=== PATIENT | female | born 1985 | race Hispanic/Latino ===

== ENCOUNTER 2017-02-22 20:44 | Emergency (ER) | payer BC, OTHER ==
[2017-02-22 20:51] VITALS: BMI 22.6
[2017-02-22] MEDS ORDERED: Sodium Chloride 0.9% 500 ML IV STA (21:11)
[2017-02-22] MEDS ORDERED: guaiFENesin 200 mg/10 ml Syrup UD PO STA (21:11)
[2017-02-22] MEDS ORDERED: guaiFENesin-Codeine 100-10mg/5ml Syrup (5 ml) UD PO ONE (21:11)
[2017-02-22] MEDS ORDERED: Levalbuterol 1.25 MG/3 ML Inhal Soln UD IH STA (21:12)
[2017-02-22] MEDS ORDERED: Phenylephrine 0.5% Nasal Spray (15 ml) NS STA (21:13)
[2017-02-22 21:16] VITALS: TEMP 97.7
[2017-02-22 21:27] LABS: ADD MANUAL DIFF? NO
[2017-02-22 21:35] LABS: BASO # 0.03 K/mm3 (0.0-2.0); BASO % 0.3 % (0.0-3.0); EOS # 0.1 (0.0-0.7); EOS % 0.7 % (1.5-5.0); GRAN # 6.66 (1.4-6.5); GRAN % 73.4 % (50.0-68.0); HEMATOCRIT 37.8 % (36.0-48.0); LYMPH # 1.6 (1.2-3.4); LYMPH % 17.1 % (22.0-35.0); MEAN CELL VOLUME 85.7 fL (80.0-105.0); MEAN CORPUSCULAR HEMOGLOBIN 29.7 pg (25.0-35.0); MEAN CORPUSCULAR HGB CONC 34.7 g/dl (31.0-37.0); MEAN PLATELET VOLUME 9.8 fl (7.0-11.0); MONO # 0.8 (0.1-0.6); MONO % 8.5 % (1.0-6.0); PLATELET COUNT 290 10^3/uL (120.0-450.0); RED CELL DISTRIBUTION WIDTH 12.5 % (11.5-14.5); WHITE BLOOD COUNT 9.1 10^3/ul (4.5-11.0)
[2017-02-22 21:42] LABS: ALB/GLOB RATIO 1.2 (1.1-1.8); ALKALINE PHOSPHATASE 56 U/L (38-133); ALT/SGPT 22 U/L (7-56); AST/SGOT 22 U/L (15-39); BILIRUBIN,TOTAL 0.5 mg/dL (0.2-1.3); BLOOD UREA NITROGEN 8 mg/dL (7-21); CALCIUM 9.4 mg/dL (8.4-10.5); CARBON DIOXIDE 26 mmol/L (21-33); CHLORIDE 103 mmol/L (98-107); GFR AFRICAN-AMERICAN > 60; GLUCOSE,RANDOM 94 mg/dL (70-110); MAGNESIUM 1.9 mg/dL (1.7-2.2); POTASSIUM 3.7 mmol/L (3.6-5.0); SODIUM 136 mmol/L (132-148); TOTAL PROTEIN 7.5 g/dL (5.8-8.3)
--- NOTE | 2017-02-22 21:47 | ED PDOC ---
Arrival/HPI - General Chief Complaint: Chest Pain Time Seen by Provider: 02/22/17 21:03 Historian: Patient - History of Present Illness Narrative History of Present Illness (Text): 02/22/17 21:05 A 31 year old female, whose past medical history includes Lupus, presents to the emergency department complaining of worsen cough for the past 2 weeks. Patient reports she was seen by her PMD and was told she has Bronchitis and started on a Z-ailin. Patient says she finished her last dose 3 days ago but the symptoms have worsened since. She went to her PMD yesterday and was prescribe a different antibiotic and an antihistamine. Patient shows no improvement in pain so she decided to come into the emergency department for further evaluation. patient has some post tussive chest pain and abdominal pain. Patient notes a sinus congestion, intermittent shortness of breath, diarrhea and nausea today but denies any fever, vomiting, symptoms or other complaints at this time. P PMD: Dr. Justin Time/Duration: > week Symptom Onset: Sudden Symptom Course: Worsening Quality: Other Activities at Onset: Rest Context: Home Past Medical History - Provider Review Nursing Documentation Reviewed: Yes - Tetanus Immunization Tetanus Immunization: Up to Date - Cardiac Hx Cardiac Disorders: No - Pulmonary Hx Respiratory Disorders: Yes Hx Bronchitis: Yes - Neurological Hx Neurological Disorder: No - HEENT Hx HEENT Disorder: No - Renal Hx Renal Disorder: No - Endocrine/Metabolic Hx Endocrine Disorders: Yes Hx Systemic Lupus Erythematosus: Yes - Hematological/Oncological Hx Blood Disorders: No - Integumentary Hx Dermatological Disorder: No - Musculoskeletal/Rheumatological Hx Musculoskeletal Disorders: No - Gastrointestinal Hx Gastrointestinal Disorders: No - Genitourinary/Gynecological Hx Genitourinary Disorders: No - Psychiatric Hx Psychophysiologic Disorder: No Hx Substance Use: No - Surgical History Hx Orthopedic Surgery: Yes Hx Tonsillectomy: Yes Other/Comment: Right carpel tunnel surgery - Suicidal Assessment Feels Threatened In Home Enviroment: No Family/Social History - Physician Review Nursing Documentation Reviewed: Yes Family/Social History: Unknown Family HX Smoking Status: Never Smoked Hx Alcohol Use: Yes Frequency of alcohol use: Socially Hx Substance Use: No Allergies/Home Meds Allergies/Adverse Reactions: Allergies No Known Allergies Allergy (Verified 02/22/17 20:52) Home Medications: Home Meds Medication Instructions Recorded Confirmed Hydroxychloroquine Sulfate 200 mg PO DAILY 09/10/16 09/10/16 [Plaquenil] Naproxen [Naprosyn Tab] 0 mg PO PRN PRN 09/10/16 09/10/16 Review of Systems - Physician Review All systems were reviewed & negative as marked: Yes - Review of Systems Constitutional: absent: Fevers ENT: Sinus Congestion Respiratory: SOB, Cough Cardiovascular: Chest Pain Gastrointestinal: Abdominal Pain, Diarrhea, Nausea. absent: Vomiting Genitourinary Female: absent: Dysuria, Frequency, Hematuria, Urine Output Changes, Vaginal Bleeding, Vaginal Discharge Physical Exam Vital Signs Reviewed: Yes Vital Signs Temp Pulse Resp BP Pulse Ox 02/22/17 21:16 97.7 F 81 18 116/71 98 Temperature: Afebrile Blood Pressure: Normal Pulse: Regular Respiratory Rate: Normal Appearance: Positive for: Well-Appearing, Non-Toxic, Comfortable Pain Distress: None Mental Status: Positive for: Alert and Oriented X 3 - Systems Exam Head: Present: Atraumatic, Normocephalic Pupils: Present: PERRL Extroacular Muscles: Present: EOMI Conjunctiva: Present: Normal Mouth: Present: Moist Mucous Membranes Neck: Present: Normal Range of Motion Respiratory/Chest: Present: Clear to Auscultation, Good Air Exchange. No: Respiratory Distress, Accessory Muscle Use Cardiovascular: Present: Regular Rate and Rhythm, Normal S1, S2. No: Murmurs Abdomen: Present: Normal Bowel Sounds. No: Tenderness, Distention, Peritoneal Signs Back: Present: Normal Inspection Upper Extremity: Present: Normal Inspection. No: Cyanosis, Edema Lower Extremity: Present: Normal Inspection. No: Edema Neurological: Present: GCS=15, CN II-XII Intact, Speech Normal Skin: Present: Warm, Dry, Normal Color. No: Rashes Psychiatric: Present: Alert, Oriented x 3, Normal Insight, Normal Concentration Medical Decision Making ED Course and Treatment: 02/22/17 21:05 Impression: A 31 year female with worsening cough. Differential Diagnosis include but are not limited to: bronchitis vs. pneumonia vs less likely PE Plan: -- Chest X-ray -- Labs -- Phenylephrine, Pepcid, Robitussin, Solu-Medrol, Toradol, Xopenex, Zofran and IV Fluids -- Reassess and disposition Prior Visits: Notes and results from previous visits were reviewed. The patient last presented to the emergency department on 09/10/16 for evaluation of a headache. Progress Notes: EKG: Ordered, reviewed, and independently interpreted the EKG. Rate : 94 BPM Rhythm : NSR Interpretation : No ST-segment elevations or depressions, no T-wave inversions, normal intervals. 02/22/17 22:24 Patient with noted history. EKG is normal with normal labs, including normal d- dimer. CXR is normal. Patient feeling better. She has already finished a course of antibiotics. Will treat post-infectious cough with steroids, and Robitussin AC. - Lab Interpretations Lab Results: 02/22/17 20:20 02/22/17 20:20 Lab Results 02/22/17 20:20: D-Dimer, Quantitative 0.33 02/22/17 20:20: Sodium 136, Potassium 3.7, Chloride 103, Carbon Dioxide 26, Anion Gap 11, BUN 8, Creatinine 0.6, Est GFR ( Amer) > 60, Est GFR (Non- Af Amer) > 60, Random Glucose 94, Calcium 9.4, Magnesium 1.9, Total Bilirubin 0.5, AST 22, ALT 22, Alkaline Phosphatase 56, Lactate Dehydrogenase 332 L, Total Creatine Kinase 65, Troponin I < 0.01, Total Protein 7.5, Albumin 4.1, Globulin 3.4, Albumin/Globulin Ratio 1.2 02/22/17 20:20: WBC 9.1 D, RBC 4.41, Hgb 13.1, Hct 37.8, MCV 85.7, MCH 29.7, MCHC 34.7, RDW 12.5, Plt Count 290, MPV 9.8, Gran % 73.4 H, Lymph % (Auto) 17.1 L, [place] % (Auto) 8.5 H, Eos % (Auto) 0.7 L, Baso % (Auto) 0.3, Gran # 6.66 H, Lymph # 1.6, [place] # 0.8 H, Eos # 0.1, Baso # 0.03 I have reviewed the lab results: Yes - RAD Interpretation Radiology Orders: 02/22/17 21:09 CHEST TWO VIEWS (PA/LAT) [RAD] Stat - Medication Orders Current Medication Orders: Discontinued Medications Famotidine (Pepcid) 20 mg IVP STAT STA Stop: 02/22/17 21:11 Last Admin: 02/22/17 21:45 Dose: 20 mg Guaifenesin (Robitussin) 200 mg PO ONCE STA Stop: 02/22/17 21:12 Last Admin: 02/22/17 21:47 Dose: 200 mg Guaifenesin/Codeine Phosphate (Robitussin W/Codeine) 10 ml PO ONCE ONE Stop: 02/22/17 21:12 Last Admin: 02/22/17 21:46 Dose: 10 ml Sodium Chloride (Sodium Chloride 0.9%) 500 mls @ 999 mls/hr IV .Q31M STA Stop: 02/22/17 21:41 Last Admin: 02/22/17 21:47 Dose: 999 mls/hr Ketorolac Tromethamine (Toradol) 15 mg IVP STAT STA Stop: 02/22/17 21:21 Last Admin: 02/22/17 21:42 Dose: 15 mg Levalbuterol HCl (Xopenex) 1.25 mg IH STAT STA Stop: 02/22/17 21:13 Last Admin: 02/22/17 21:47 Dose: 1.25 mg Methylprednisolone (Solu-Medrol) 125 mg IVP STAT STA Stop: 02/22/17 21:12 Last Admin: 02/22/17 22:11 Dose: 125 mg Ondansetron HCl (Zofran Inj) 4 mg IVP STAT STA Stop: 02/22/17 21:11 Last Admin: 02/22/17 21:45 Dose: 4 mg Phenylephrine HCl (Alec-Synephrine 0.5% Nasal [place]) 0 ml NS STAT STA Stop: 02/22/17 21:14 Last Admin: 02/22/17 21:45 Dose: 2 sprays - Scribe Statement The provider has reviewed the documentation as recorded by the Keith William Provider Scribe Attestation: All medical record entries made by the Keith were at my direction and personally dictated by me. I have reviewed the chart and agree that the record accurately reflects my personal performance of the history, physical exam, medical decision making, and the department course for this patient. I have also personally directed, reviewed, and agree with the discharge instructions and disposition. Disposition/Present on Arrival - Present on Arrival Any Indicators Present on Arrival: No History of DVT/PE: No History of Uncontrolled Diabetes: No Urinary Catheter: No History of Decub. Ulcer: No History Surgical Site Infection Following: None - Disposition Have Diagnosis and Disposition been Completed?: Yes Diagnosis: Bronchitis Disposition: HOME/ ROUTINE Disposition Time: 22:40 Patient Plan: Discharge Condition: GOOD Additional Instructions: Drink plenty of fluids. Take the medications as prescribed. Follow up with your primary care doctor. Return to the emergency department if any new concerning symptoms. Prescriptions: Albuterol HFA [Ventolin HFA 90 mcg/actuation (8 g)] 2 puff IH Q4H #1 inhaler Codeine Phosphate/Guaifenesin [Guaifenesin-Codeine Syrup] 10 ml PO Q6H PRN #180 ml PRN Reason: Cough predniSONE [Prednisone] 2 tab PO DAILY #10 tab Pseudoephedrine [Sudafed Tab] 2 tab PO Q6H PRN #24 tab PRN Reason: Nasal Congestion Referrals: Maryuri Justin MD [Primary Care Provider] - Follow up with primary
[2017-02-22 21:54] LABS: TROPONIN I < 0.01 ng/mL
[2017-02-23 01:11] VITALS: BP 94/60; PULSE 94; RESP 19; O2SAT 97
--- NOTE | 2017-02-23 10:54 | RAD ---
HISTORY: cough COMPARISON: 12/25/2013 TECHNIQUE: Chest PA and lateral FINDINGS: LUNGS: No active pulmonary disease. PLEURA: No significant pleural effusion identified. No pneumothorax apparent. CARDIOVASCULAR: Normal. OSSEOUS STRUCTURES: No significant abnormalities. VISUALIZED UPPER ABDOMEN: Normal. OTHER FINDINGS: None. IMPRESSION: No active disease.
--- NOTE | 2017-02-23 11:07 | CARD ---
APPROVED REPORT EKG Measurement Heart [id number] <Conclusion> Normal sinus rhythm Normal ECG
== END 2017-02-22 23:56 | disposition home or self-care (01) ==
LOC: ED 20:44
DX: J40 Bronchitis, not specified as acute or chronic (principal); M32.9 Systemic lupus erythematosus, unspecified
CPT/HCPCS: 71020; 80053; 82550; 83615; 83735; 84484; 85025; 85378; 93005; 96374; 96375; 99283; J1885; J2405; J2930; J7040

== ENCOUNTER 2018-10-02 14:54 | Observation (INO) | payer BC, OTHER ==
[2018-10-02 15:05] VITALS: BMI 20.5
[2018-10-02] MEDS ORDERED: Morphine 2 mg/ml ISec IVP STA (15:26)
--- NOTE | 2018-10-02 15:29 | ED PDOC ---
Arrival/HPI - General Time Seen by Provider: 10/02/18 15:03 Historian: Patient - History of Present Illness Narrative History of Present Illness (Text): 10/02/18 15:25 33 year old female, whose past medical history includes lupus and depression, presents to the emergency department complaining of burning sensation in her chest and back, since earlier this morning. Patient states the chest pain worsens when she tries to take a deep breath, she describes the pain as a "sharp object" pressing against her chest. She notes associated swelling. Patient denies these symptoms feel different when compared to previous panic attack. She denies fevers, chills, headache, dizziness, shortness of breath, dyspnea on exertion, cough, abdominal pain, nausea, vomiting, diarrhea, or any other complaint. Time/Duration: 4-6 hours Symptom Onset: Gradual Activities at Onset: Light Context: Home Past Medical History - Provider Review Nursing Documentation Reviewed: Yes - Infectious Disease Hx of Infectious Diseases: None - Tetanus Immunization Tetanus Immunization: Up to Date - Reproductive Menopause: Yes - Cardiac Hx Cardiac Disorders: No - Pulmonary Hx Respiratory Disorders: Yes Hx Bronchitis: Yes - Neurological Hx Neurological Disorder: No - HEENT Hx HEENT Disorder: No - Renal Hx Renal Disorder: No - Endocrine/Metabolic Hx Endocrine Disorders: Yes Hx Systemic Lupus Erythematosus: Yes - Hematological/Oncological Hx Blood Disorders: No - Integumentary Hx Dermatological Disorder: No - Musculoskeletal/Rheumatological Hx Musculoskeletal Disorders: No - Gastrointestinal Hx Gastrointestinal Disorders: No - Genitourinary/Gynecological Hx Genitourinary Disorders: No - Psychiatric Hx Psychophysiologic Disorder: No Hx Substance Use: No - Surgical History Hx Orthopedic Surgery: Yes Hx Tonsillectomy: Yes Other/Comment: Right carpel tunnel surgery - Anesthesia Hx Anesthesia Reactions: No Hx Malignant Hyperthermia: No - Suicidal Assessment Feels Threatened In Home Enviroment: No Family/Social History - Physician Review Nursing Documentation Reviewed: Yes Family/Social History: No Known Family HX Smoking Status: Never Smoked Hx Alcohol Use: Yes Hx Substance Use: No Allergies/Home Meds Allergies/Adverse Reactions: Allergies No Known Allergies Allergy (Verified 02/22/17 20:52) Home Medications: Home Meds Medication Instructions Recorded Confirmed Hydroxychloroquine Sulfate 200 mg PO DAILY 09/10/16 09/10/16 [Plaquenil] Naproxen [Naprosyn Tab] 0 mg PO PRN PRN 09/10/16 09/10/16 Review of Systems - Physician Review All systems were reviewed & negative as marked: Yes - Review of Systems Constitutional: absent: Fevers Respiratory: absent: SOB, Cough Cardiovascular: Chest Pain Gastrointestinal: absent: Abdominal Pain, Diarrhea, Nausea, Vomiting Musculoskeletal: Back Pain. absent: Neck Pain Neurological: absent: Headache, Dizziness Physical Exam - Physical Exam Narrative Physical Exam (Text): 10/02/18 15:30 Gen: VS reviewed, alert, well developed, well nourished, nontoxic, mild distress. ENT: normal pharynx. Eye: EOMI, PERRL. Neck: no JVD, supple, no adenopathy. CV: tacchycardic with regular rhythm, no rubs, no murmur, no gallops, S1, S2, pulses equal and strong. Pulm: no distress, clear to auscultation, no wheeze, no rhonchi, breath sounds equal, no rales. Abd: soft, nontender, no guarding, no rebound, no rigidity, normal bowel sounds. Ext: no edema. Skin: good color, no rash, no cyanosis. Psych: responds appropriately to questions, normal affect. appears anxious. Neuro: oriented x 3, CN2-12 intact grossly, motor intact, sensation intact. mild tremor in hands. Vital Signs Reviewed: Yes Vital Signs Temp Pulse Resp BP Pulse Ox 10/02/18 14:54 98.1 F 108 H 18 121/80 100 Temperature: Afebrile Blood Pressure: Normal Pulse: Tachycardic Respiratory Rate: Normal Appearance: Positive for: Well-Appearing, Non-Toxic Pain Distress: None Mental Status: Positive for: Alert and Oriented X 3 Medical Decision Making ED Course and Treatment: 10/02/18 15:41 Impression: 33 year old female who presents to the emergency department complaining of burning sensation in chest and back. Plan: - Angiography disection protocol CT scan -- EKG -- Labs -- Chest X-ray -- Morphine -- POC urine test -- Reassess and disposition Prior Visits: Notes and results from previous visits were reviewed. Progress Notes: 10/02/18 17:[address] soria to the hospitalist service. patient to be admitted for chest, abnormal pulm lymphadenopahy with a hx of lupus. there is no discrete pulm infiltrate and i will defer antibiotics. - Lab Interpretations I have reviewed the lab results: Yes - RAD Interpretation Narrative RAD Interpretations (Text): 10/02/2018 16:[address] IMPRESSION: No evidence of aortic dissection. No gross central pulmonary embolism. Nonspecific prominent mediastinal and bilateral axillary lymph nodes. Largest node measures 2.7 x 1.6 cm in left axilla. Dictator: Gio Nunez MD - EKG Interpretation EKG Interpretation (Text): 10/02/18 16:08 1501: sinus tach at 106 bpm, nml qrs, nml axis, no acute sstw abn Interpreted by ED Physician: Yes Type: 12 lead EKG - Scribe Statement The provider has reviewed the documentation as recorded by the Marniibannalise Ramirez Provider Scribe Attestation: All medical record entries made by the Scribe were at my direction and personally dictated by me. I have reviewed the chart and agree that the record accurately reflects my personal performance of the history, physical exam, medical decision making, and the department course for this patient. I have also personally directed, reviewed, and agree with the discharge instructions and disposition. Disposition/Present on Arrival - Present on Arrival Any Indicators Present on Arrival: No History of DVT/PE: No History of Uncontrolled Diabetes: No Urinary Catheter: No History of Decub. Ulcer: No History Surgical Site Infection Following: None - Disposition Have Diagnosis and Disposition been Completed?: Yes Diagnosis: Chest pain, Lymphadenopathy Disposition Time: 17:59 Patient Plan: Observation Condition: STABLE Discharge Instructions (ExitCare): Chest Pain (ED)
[2018-10-02 15:47] LABS: BASO # 0.02 K/mm3 (0.0-2.0); BASO % 0.4 % (0.0-3.0); EOS % 0.2 % (1.5-5.0); GRAN # 3.44 (1.4-6.5); GRAN % 66.9 % (50.0-68.0); HEMOGLOBIN 12.8 g/dL (12.0-16.0); LYMPH # 1.3 (1.2-3.4); LYMPH % 25.9 % (22.0-35.0); MEAN CELL VOLUME 87.1 fl (80.0-105.0); MEAN CORPUSCULAR HEMOGLOBIN 29.6 pg (25.0-35.0); MEAN PLATELET VOLUME 9.6 fl (7.0-11.0); MONO # 0.3 (0.1-0.6); MONO % 6.6 % (1.0-6.0); RBC 4.33 10^6/uL (3.5-6.1); RED CELL DISTRIBUTION WIDTH 12.3 % (11.5-14.5); WHITE BLOOD COUNT 5.1 10^3/uL (4.5-11.0)
[2018-10-02 15:58] LABS: D DIMER < 200 ng/mlDDU (0-243); INR 0.93; PARTIAL THROMBOPLASTIN TIME 23.1 Seconds (25.1-36.5); PROTHROMBIN TIME 10.6 SECONDS (9.4-12.5)
[2018-10-02 16:00] LABS: ALB/GLOB RATIO 1.2 (1.1-1.8); ALBUMIN 4.2 g/dL (3.0-4.8); ALT/SGPT 36 U/L (7-56); AST/SGOT 56 U/L (14-36); BLOOD UREA NITROGEN 11 mg/dL (7-21); CALCIUM 9.5 mg/dL (8.4-10.5); GFR NON-AFRICAN AMERICAN > 60; LIPASE 98 U/L (23-300)
[2018-10-02 16:12] LABS: TROPONIN I < 0.01 ng/mL
[2018-10-02 16:16] LABS: CK-MB 0.8 ng/mL (0.0-3.6)
[2018-10-02 16:21] LABS: BARBITURATES, UR NEGATIVE (NEGATIVE); BENZODIAZEPINES, UR NEGATIVE (NEGATIVE); OPIATES, UR NEGATIVE (NEGATIVE); PHENCYCLIDINE, UR NEGATIVE (NEGATIVE)
--- NOTE | 2018-10-02 16:57 | CT ---
PROCEDURE: CT Angiography Chest, Abdomen and Pelvis with and without intravenous contrast HISTORY: acute chest pain COMPARISON: None. TECHNIQUE: Contiguous axial images of the chest, abdomen and pelvis were obtained in the phase of aortic enhancement. A noncontrast enhanced CT of the chest was also obtained to evaluate for possible intramural thrombus. Coronal and sagittal reformats were generated. IV dose administered: 140 mL Omnipaque 350 Radiation dose: Total exam DLP = 913.19 mGy-cm. This CT exam was performed using one or more of the following dose reduction techniques: Automated exposure control, adjustment of the mA and/or kV according to patient size, and/or use of iterative reconstruction technique. FINDINGS: CT ANGIOGRAPHY OF THE CHEST WITH & WITHOUT CONTRAST: AORTA (CHEST AND ABDOMEN): The thoracic and abdominal aorta are unremarkable, without aneurysm, dissection or rupture. No intramural thrombus identified in the thoracic aorta on the non-contrast ct of the chest. The celiac axis, superior mesenteric artery, inferior mesenteric artery and the renal arteries are widely patent. The pelvic arteries are unremarkable. LUNGS: 4 mm left lower lobe nodule (series 3, image 64). No mass or consolidation. MEDIASTINUM: Unremarkable. Normal caliber aorta and pulmonary arterial trunk. No aortic dissection. Normal size heart. LYMPH NODES: Prominent mediastinal and bilateral axillary lymph nodes, the largest node in the left axilla measures 2.7 x 1.6 cm. PLEURA: Unremarkable. No pneumothorax. No pleural fluid. BONES: Unremarkable. OTHER FINDINGS: None. CT ANGIOGRAPHY OF THE ABDOMEN AND PELVIS WITH CONTRAST: LIVER: Unremarkable. No gross lesion or ductal dilatation. GALLBLADDER AND BILE DUCTS: Unremarkable. PANCREAS: Unremarkable. No gross lesion or ductal dilatation. SPLEEN: Unremarkable. ADRENALS: Unremarkable. No mass. KIDNEYS AND URETERS: Unremarkable. No hydronephrosis. No solid mass. VASCULATURE: Unremarkable. No aortic aneurysm. No aortic atherosclerotic calcification or mural plaque present. STOMACH AND BOWEL: Unremarkable. No obstruction. No gross mural thickening. APPENDIX: Normal appendix. PERITONEUM: Unremarkable. No free fluid. No free air. LYMPH NODES: Unremarkable. No enlarged lymph nodes. BLADDER: Unremarkable. REPRODUCTIVE: Intrauterine device in place. BONES: No acute fracture. OTHER FINDINGS: None. IMPRESSION: No evidence of aortic dissection. No gross central pulmonary embolism. Nonspecific prominent mediastinal and bilateral axillary lymph nodes. Largest node measures 2.7 x 1.6 cm in left axilla. Additional findings as above.
--- NOTE | 2018-10-02 19:04 | CP.PCM.HP ---
<Jesus Patel - Last Filed: 10/02/18 20:26> History of Present Illness - History of Present Illness History of Present Illness: Medicine History and Physical for Hospitalist Service, Dr. Dom Patel, DO PGY-1 This is a 33 y o female with PMhx lupus (currently on plaquenil therapy), depression, panic attacks, who presents to the ED c/o chest pain and worsening shortness of breath since this am. States she awoke this am from sleep, felt palpitations, thought she was havign a panic attack, but that her symptoms did not go away on own and have been constant and unrelenting since onset. States she took one 800 mg tablet of ibuprofen for pain which did not help. Pt states she was previously treated for Pericarditis in 2017 and admitted at [facility]. Also admits to binge drinking for the past 1.5 mos, admits to drinking about 4-5 glasses red wine/day mixed in between with [employer] Vodka. 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 Admits to associated diaphoresis and tremors. Admits to headache and nausea. Denies vision changes, fever, chills, v/d/c, abd pain, urinary complaints or other symptoms. PMhx: lupus (currently on plaquenil therapy), depression, panic attacks PSurgHx: Release of ulnar nerve of R arm for Carpal tunnel syndrome Allergies: NKDA Home meds: Plaquenil 200 mg bid Fam hx: significant for HTN, DM and depression Soc hx: denies smoking or illicit drug use; admits to binge drinking EtOH as described in HPI PMD: none Primary cesspool cleaner: Dr. Matson ([facility]) Present on Admission - Present on Admission Any Indicators Present on Admission: No History of DVT/PE: No History of Uncontrolled Diabetes: No Urinary Catheter: No Decubitus Ulcer Present: No Review of Systems - Constitutional Constitutional: Excessive Sweating. absent: Chills, Fever - Cardiovascular Cardiovascular: Chest Pain, Dyspnea. absent: Dyspnea on Exertion - Respiratory Respiratory: Dyspnea. absent: Cough, Pain on Inspiration - Gastrointestinal Gastrointestinal: Nausea. absent: Abdominal Pain, Constipation, Diarrhea, Vomiting Past Patient History - Infectious Disease Hx of Infectious Diseases: None - Tetanus Immunizations Tetanus Immunization: Up to Date - Past Social History Smoking Status: Never Smoked - CARDIAC Hx Cardiac Disorders: No - PULMONARY Hx Respiratory Disorders: Yes Hx Bronchitis: Yes - NEUROLOGICAL Hx Neurological Disorder: No - HEENT Hx HEENT Problems: No - RENAL Hx Chronic Kidney Disease: No - ENDOCRINE/METABOLIC Hx Endocrine Disorders: Yes Hx Systemic Lupus Erythematosus: Yes - HEMATOLOGICAL/ONCOLOGICAL Hx Blood Disorders: No - INTEGUMENTARY Hx Dermatological Problems: No - MUSCULOSKELETAL/RHEUMATOLOGICAL Hx Musculoskeletal Disorders: No - GASTROINTESTINAL Hx Gastrointestinal Disorders: No - GENITOURINARY/GYNECOLOGICAL Hx Genitourinary Disorders: No - PSYCHIATRIC Hx Psychophysiologic Disorder: No Hx Substance Use: No - SURGICAL HISTORY Hx Orthopedic Surgery: Yes Hx Tonsillectomy: Yes Other/Comment: Right carpel tunnel surgery - ANESTHESIA Hx Anesthesia Reactions: No Hx Malignant Hyperthermia: No Meds Allergies/Adverse Reactions: Allergies Allergy/AdvReac Type Severity Reaction Status Date / Time No Known Allergies Allergy Verified 02/22/17 20:52 Physical Exam - Constitutional Appears: Non-toxic, No Acute Distress Additional comments: Anxious on exam - Head Exam Head Exam: ATRAUMATIC, NORMOCEPHALIC - Eye Exam Eye Exam: EOMI, Normal appearance, PERRL - ENT Exam ENT Exam: Mucous Membranes Moist - Respiratory Exam Respiratory Exam: Clear to Auscultation Bilateral, NORMAL BREATHING PATTERN. absent: Rales, Rhonchi, Wheezes - Cardiovascular Exam Cardiovascular Exam: Tachycardia, +S1, +S2. absent: Gallop, Rubs, Systolic Murmur - GI/Abdominal Exam GI & Abdominal Exam: Normal Bowel Sounds, Soft. absent: Distended, Guarding, Organomegaly, Tenderness - Extremities Exam Extremities exam: Positive for: full ROM, normal capillary refill, normal inspection, pedal pulses present - Neurological Exam Neurological exam: Alert, CN II-XII Intact, Oriented x3, Reflexes Normal - Skin Skin Exam: Dry, Intact, Normal Color, Warm Results - Vital Signs Recent Vital Signs: Last Vital Signs Temp 98.1 F 10/02/18 14:54 Pulse 108 H 10/02/18 18:28 Resp 19 10/02/18 18:28 BP 140/88 10/02/18 18:28 Pulse Ox 97 10/02/18 18:28 - Labs Result Diagrams: 10/02/18 15:42 10/02/18 15:42 Labs: Laboratory Results - last 24 hr 10/02/18 10/02/18 10/02/18 15:42 15:42 15:42 WBC 5.1 RBC 4.33 Hgb 12.8 Hct 37.7 MCV 87.1 MCH 29.6 MCHC 34.0 RDW 12.3 Plt Count 279 MPV 9.6 Gran % 66.9 Lymph % (Auto) 25.9 Nuckolls % (Auto) 6.6 H Eos % (Auto) 0.2 L Baso % (Auto) 0.4 Gran # 3.44 Lymph # (Auto) 1.3 Nuckolls # (Auto) 0.3 Eos # (Auto) 0.0 Baso # (Auto) 0.02 ESR 4 PT 10.6 INR 0.93 APTT 23.1 L D-Dimer, Quantitative < 200 Sodium 136 Potassium 3.6 Chloride 104 Carbon Dioxide 24 Anion Gap 11 BUN 11 Creatinine 0.5 L Est GFR ( Amer) > 60 Est GFR (Non-Af Amer) > 60 Random Glucose 155 H Calcium 9.5 Magnesium 1.5 L Total Bilirubin 0.7 AST 56 H ALT 36 Alkaline Phosphatase 65 Total Creatine Kinase 399 H CK-MB (CK-2) 0.8 CK-MB (CK-2) % Cancelled Troponin I < 0.01 Total Protein 7.5 Albumin 4.2 Globulin 3.3 Albumin/Globulin Ratio 1.2 Lipase 98 TSH 3rd Generation Urine Opiates Screen Urine Methadone Screen Ur Barbiturates Screen Ur Phencyclidine Scrn Ur Amphetamines Screen U Benzodiazepines Scrn U Oth Cocaine Metabols U Cannabinoids Screen 10/02/18 10/02/18 15:42 15:42 WBC RBC Hgb Hct MCV MCH MCHC RDW Plt Count MPV Gran % Lymph % (Auto) Nuckolls % (Auto) Eos % (Auto) Baso % (Auto) Gran # Lymph # (Auto) Nuckolls # (Auto) Eos # (Auto) Baso # (Auto) ESR PT INR APTT D-Dimer, Quantitative Sodium Potassium Chloride Carbon Dioxide Anion Gap BUN Creatinine Est GFR ( Amer) Est GFR (Non-Af Amer) Random Glucose Calcium Magnesium Total Bilirubin AST ALT Alkaline Phosphatase Total Creatine Kinase CK-MB (CK-2) CK-MB (CK-2) % Troponin I Total Protein Albumin Globulin Albumin/Globulin Ratio Lipase TSH 3rd Generation 1.28 Urine Opiates Screen Negative Urine Methadone Screen Negative Ur Barbiturates Screen Negative Ur Phencyclidine Scrn Negative Ur Amphetamines Screen Negative U Benzodiazepines Scrn Negative U Oth Cocaine Metabols Negative U Cannabinoids Screen Negative Assessment & Plan - Assessment and Plan (Free Text) Assessment: This is a 33 y o female with PMhx lupus (currently on plaquenil therapy), depression, panic attacks, who presents to the ED c/o chest pain and worsening shortness of breath since this am. Admitted for chest pain r/o ACS, EtOH withdrawal. CTA demonstrated b/l axillary and mediastinal lymph nodes b/l. Plan: Chest pain r/o ACS Admit to tele Cardio consulted (Dr. Wu), recs appreciated Trop neg x1, repeat trops x 2 pending EKG sinus tachycardia in ED, no acute St-T wave changes appreciated CTA neg for PE Tylenol prn for pain TSH wnl, free T4 and T3 pending A1c pending B/l mediastinal and axillary lymphadenopathy Found on CTA as noted above Will consult Pulm in am Pt denies B-symptoms, inc night sweats and unintentional weight loss Et0H withdrawal Last known drink yesterday as per pt Binge drinking hx as noted in HPI CIWA protocol Fall and seizure precautions Ativan 1 mg q 6 h prn for anxiety UDS negative EtOH level pending HHD MVT, folate, thiamine Mild transaminitis noted on admission labs, cont to trend Lipase neg Hx lupus C/w home med Plaquenil 200 mg PO bid DVT/GI ppx: SCDs/Protonix Pt seen, examined with, and plan discussed with Dr. Fernandes, attending physician. Jesus Patel DO PGY-1, Hand Molder Pager #[phone] <Shonda Fernandes - Last Filed: 10/03/18 00:56> Results - Vital Signs Recent Vital Signs: Last Vital Signs Temp 98.1 F 10/02/18 14:54 Pulse 102 H 10/02/18 20:41 Resp 18 10/02/18 20:41 BP 128/79 10/02/18 20:41 Pulse Ox 100 10/02/18 20:41 - Labs Result Diagrams: 10/02/18 15:42 10/02/18 15:42 Labs: Laboratory Results - last 24 hr 10/02/18 10/02/18 10/02/18 15:42 15:42 15:42 WBC 5.1 RBC 4.33 Hgb 12.8 Hct 37.7 MCV 87.1 MCH 29.6 MCHC 34.0 RDW 12.3 Plt Count 279 MPV 9.6 Gran % 66.9 Lymph % (Auto) 25.9 Nuckolls % (Auto) 6.6 H Eos % (Auto) 0.2 L Baso % (Auto) 0.4 Gran # 3.44 Lymph # (Auto) 1.3 Nuckolls # (Auto) 0.3 Eos # (Auto) 0.0 Baso # (Auto) 0.02 ESR 4 PT 10.6 INR 0.93 APTT 23.1 L D-Dimer, Quantitative < 200 Sodium 136 Potassium 3.6 Chloride 104 Carbon Dioxide 24 Anion Gap 11 BUN 11 Creatinine 0.5 L Est GFR ( Amer) > 60 Est GFR (Non-Af Amer) > 60 Random Glucose 155 H Calcium 9.5 Magnesium 1.5 L Total Bilirubin 0.7 AST 56 H ALT 36 Alkaline Phosphatase 65 Total Creatine Kinase 399 H CK-MB (CK-2) 0.8 CK-MB (CK-2) % Cancelled Troponin I < 0.01 Total Protein 7.5 Albumin 4.2 Globulin 3.3 Albumin/Globulin Ratio 1.2 Lipase 98 TSH 3rd Generation Urine Opiates Screen Urine Methadone Screen Ur Barbiturates Screen Ur Phencyclidine Scrn Ur Amphetamines Screen U Benzodiazepines Scrn U Oth Cocaine Metabols U Cannabinoids Screen Alcohol, Quantitative 10/02/18 10/02/18 10/02/18 15:42 15:42 20:20 WBC RBC Hgb Hct MCV MCH MCHC RDW Plt Count MPV Gran % Lymph % (Auto) Nuckolls % (Auto) Eos % (Auto) Baso % (Auto) Gran # Lymph # (Auto) Nuckolls # (Auto) Eos # (Auto) Baso # (Auto) ESR PT INR APTT D-Dimer, Quantitative Sodium Potassium Chloride Carbon Dioxide Anion Gap BUN Creatinine Est GFR ( Amer) Est GFR (Non-Af Amer) Random Glucose Calcium Magnesium Total Bilirubin AST ALT Alkaline Phosphatase Total Creatine Kinase CK-MB (CK-2) CK-MB (CK-2) % Troponin I Total Protein Albumin Globulin Albumin/Globulin Ratio Lipase TSH 3rd Generation 1.28 Urine Opiates Screen Negative Urine Methadone Screen Negative Ur Barbiturates Screen Negative Ur Phencyclidine Scrn Negative Ur Amphetamines Screen Negative U Benzodiazepines Scrn Negative U Oth Cocaine Metabols Negative U Cannabinoids Screen Negative Alcohol, Quantitative < 10 10/02/18 20:20 WBC RBC Hgb Hct MCV MCH MCHC RDW Plt Count MPV Gran % Lymph % (Auto) Nuckolls % (Auto) Eos % (Auto) Baso % (Auto) Gran # Lymph # (Auto) Nuckolls # (Auto) Eos # (Auto) Baso # (Auto) ESR PT INR APTT D-Dimer, Quantitative Sodium Potassium Chloride Carbon Dioxide Anion Gap BUN Creatinine Est GFR ( Amer) Est GFR (Non-Af Amer) Random Glucose Calcium Magnesium Total Bilirubin AST ALT Alkaline Phosphatase Total Creatine Kinase CK-MB (CK-2) CK-MB (CK-2) % Troponin I < 0.01 Total Protein Albumin Globulin Albumin/Globulin Ratio Lipase TSH 3rd Generation Urine Opiates Screen Urine Methadone Screen Ur Barbiturates Screen Ur Phencyclidine Scrn Ur Amphetamines Screen U Benzodiazepines Scrn U Oth Cocaine Metabols U Cannabinoids Screen Alcohol, Quantitative Attending/Attestation - Attestation I have personally seen and examined this patient.: Yes I have fully participated in the care of the patient.: Yes I have reviewed all pertinent clinical information: Yes Notes (Text): 10/03/18 00:50 Note :O/E pt was noted to have fine tremors of her hands. Pt seen with the resident by the bedside. Case discussed in detail. Agree with rest of documentation,assessment and plan of treatment.
[2018-10-02] MEDS ORDERED: Magnesium Sulfate 2 gm/50 ml 2 GM/50 ML BAG IVPB ONE (23:15)
[2018-10-03 03:25] LABS: ALB/GLOB RATIO 1.2 (1.1-1.8); ALBUMIN 3.7 g/dL (3.0-4.8); ALT/SGPT 37 U/L (7-56); AST/SGOT 47 U/L (14-36); BLOOD UREA NITROGEN 10 mg/dL (7-21); CALCIUM 8.7 mg/dL (8.4-10.5); GFR NON-AFRICAN AMERICAN > 60
[2018-10-03 03:35] LABS: TROPONIN I < 0.01 ng/mL
[2018-10-03 03:40] LABS: FREE T4 1.21 ng/dL (0.78-2.19)
[2018-10-03 03:54] LABS: T3 1.35 ng/mL (0.97-1.69)
[2018-10-03 04:32] LABS: BASO # 0.02 K/mm3 (0.0-2.0); BASO % 0.5 % (0.0-3.0); EOS # 0.1 (0.0-0.7); GRAN # 1.73 (1.4-6.5); GRAN % 43.2 % (50.0-68.0); HEMOGLOBIN 12.1 g/dL (12.0-16.0); LYMPH # 1.6 (1.2-3.4); MEAN CELL VOLUME 89.1 fl (80.0-105.0); MEAN CORPUSCULAR HEMOGLOBIN 29.4 pg (25.0-35.0); MONO # 0.5 (0.1-0.6); MONO % 13.3 % (1.0-6.0); RBC 4.12 10^6/uL (3.5-6.1); RED CELL DISTRIBUTION WIDTH 12.5 % (11.5-14.5)
[2018-10-03 06:58] VITALS: RESP 20
--- NOTE | 2018-10-03 09:06 | RAD ---
Date of service: 10/02/2018 HISTORY: chest pain COMPARISON: 02/22/2017 FINDINGS: LUNGS: No active pulmonary disease. PLEURA: No significant pleural effusion identified, no pneumothorax apparent. CARDIOVASCULAR: No aortic atherosclerotic calcification present. Normal cardiac size. No pulmonary vascular congestion. OSSEOUS STRUCTURES: No significant abnormalities. VISUALIZED UPPER ABDOMEN: Normal. OTHER FINDINGS: None. IMPRESSION: No active disease.
--- NOTE | 2018-10-03 10:08 | CARD ---
APPROVED REPORT Date of service: 10/02/2018 EKG Measurement Heart [id number] <Conclusion> Sinus tachycardia Otherwise normal ECG
--- NOTE | 2018-10-03 13:00 | CP.PCM.PN ---
Objective - Vital Signs/Intake and Output Vital Signs (last 24 hours): Temp Pulse Resp BP Pulse Ox 98.3 F 80 20 110/81 99 10/03/18 06:00 10/03/18 06:00 10/03/18 06:00 10/03/18 06:00 10/03/18 06:00 Intake and Output: 10/03/18 10/03/18 06:59 18:59 Intake Total 180 Output Total 0 Balance 180 - Medications Medications: Current Medications Acetaminophen (Tylenol 325mg Tab) 650 mg PO Q6H PRN PRN Reason: Pain, moderate (4-7) Last Admin: 10/02/18 21:46 Dose: 650 mg Chlordiazepoxide (Librium) 25 mg PO Q4H PRN; Protocol PRN Reason: Symptoms of alcohol withdrawl Chlordiazepoxide (Librium) 25 mg PO Q8 KATHYA; Protocol Hydroxychloroquine Sulfate (Plaquenil) 200 mg PO BID [facility] Last Admin: 10/03/18 09:41 Dose: 200 mg Pantoprazole Sodium (Protonix Inj) 40 mg IVP DAILY KATHYA Last Admin: 10/03/18 09:41 Dose: 40 mg - Labs Labs: 10/03/18 03:02 10/03/18 03:02 PT 10.6 SECONDS (9.4-12.5) 10/02/18 15:42 INR 0.93 10/02/18 15:42 APTT 23.1 Seconds (25.1-36.5) L 10/02/18 15:42
--- NOTE | 2018-10-03 13:33 | CP.PCM.PN ---
<Jesus Patel - Last Filed: 10/03/18 15:14> Subjective - Date & Time of Evaluation Date of Evaluation: 10/03/18 Time of Evaluation: 09:30 - Subjective Subjective: Medicine Progress Note for Hospitalist Service, Dr. Alejandrina Patel, DO PGY-1 Pt seen and examined at bedside this am. States she is still having chest tightness, states that medication she received overnight helped with symptoms. Anxious on exam. No acute events reported overnight by staff. 12-point ROS obtained, otherwise negative as per pt. Objective - Vital Signs/Intake and Output Vital Signs (last 24 hours): Temp Pulse Resp BP Pulse Ox 98 F 84 20 116/77 99 10/03/18 12:00 10/03/18 12:00 10/03/18 12:00 10/03/18 12:00 10/03/18 06:00 Intake and Output: 10/03/18 10/03/18 06:59 18:59 Intake Total 180 Output Total 0 Balance 180 - Medications Medications: Current Medications Acetaminophen (Tylenol 325mg Tab) 650 mg PO Q6H PRN PRN Reason: Pain, moderate (4-7) Last Admin: 10/02/18 21:46 Dose: 650 mg Chlordiazepoxide (Librium) 25 mg PO Q4H PRN; Protocol PRN Reason: Symptoms of alcohol withdrawl Chlordiazepoxide (Librium) 25 mg PO Q8 [facility]; Protocol Hydroxychloroquine Sulfate (Plaquenil) 200 mg PO BID [facility] Last Admin: 10/03/18 09:41 Dose: 200 mg Pantoprazole Sodium (Protonix Inj) 40 mg IVP DAILY [facility] Last Admin: 10/03/18 09:41 Dose: 40 mg - Labs Labs: 10/03/18 03:02 10/03/18 03:02 PT 10.6 SECONDS (9.4-12.5) 10/02/18 15:42 INR 0.93 10/02/18 15:42 APTT 23.1 Seconds (25.1-36.5) L 10/02/18 15:42 - Constitutional Appears: Non-toxic, No Acute Distress - Head Exam Head Exam: ATRAUMATIC, NORMOCEPHALIC - Eye Exam Eye Exam: EOMI, Normal appearance, PERRL - ENT Exam ENT Exam: Mucous Membranes Moist - Respiratory Exam Respiratory Exam: Clear to Ausculation Bilateral, NORMAL BREATHING PATTERN. absent: Rales, Rhonchi, Wheezes - Cardiovascular Exam Cardiovascular Exam: REGULAR RHYTHM, +S1, +S2. absent: Gallop, Rubs, Murmur - GI/Abdominal Exam GI & Abdominal Exam: Soft, Normal Bowel Sounds. absent: Distended, Tenderness, Organomegaly - Extremities Exam Extremities Exam: Full ROM, Normal Capillary Refill, Normal Inspection. absent: Pedal Edema, Tenderness - Neurological Exam Neurological Exam: Alert, Awake, CN II-XII Intact, Oriented x3 - Psychiatric Exam Psychiatric exam: Anxious - Skin Skin Exam: Dry, Intact, Normal Color, Warm Assessment and Plan - Assessment and Plan (Free Text) Assessment: 33 y o female with PMhx lupus (currently on plaquenil therapy), depression, panic attacks, who presents to the ED c/o chest pain and worsening shortness of breath since this am. Admitted for chest pain r/o ACS, EtOH withdrawal. CTA demonstrated b/l axillary and mediastinal lymph nodes b/l. Plan: Chest pain r/o ACS Cardio consulted (Dr. Wu), recs appreciated Trop neg x3, pt c/o chest pain this am but reproducible on exam, likely 2/2 to costochondritis EKG sinus tachycardia in ED, no acute St-T wave changes appreciated CTA neg for PE Tylenol prn for pain TSH wnl, T4 and T3 wnl A1c pending B/l mediastinal and axillary lymphadenopathy Found on CTA as noted above Pt can follow up outpatient with Pulm for further work-up Pt denies B-symptoms, inc night sweats and unintentional weight loss Et0H withdrawal Last known drink 2 days ago as per pt Binge drinking hx as noted in HPI CIWA protocol Fall and seizure precautions Librium 25 mg PO q12h willie, Ativan 1 mg q6h prn UDS negative EtOH level <10 HHD MVT, folate, thiamine Mild transaminitis noted on admission labs, trending down Lipase neg Hx lupus C/w home med Plaquenil 200 mg PO bid DVT/GI ppx: SCDs/Protonix Pt seen, examined with, and plan discussed with attending physician, Dr. William. Jesus Patel DO PGY-1, Protozoology Teacher Pager #[phone] <William,Alejandrina R - Last Filed: 10/06/18 16:59> Objective - Vital Signs/Intake and Output Vital Signs (last 24 hours): Temp Pulse Resp BP Pulse Ox 98.1 F 89 20 104/70 94 L 10/04/18 12:00 10/04/18 12:00 10/04/18 12:00 10/04/18 12:00 10/04/18 05:59 - Labs Labs: 10/04/18 06:45 10/04/18 06:45 PT 10.6 SECONDS (9.4-12.5) 10/02/18 15:42 INR 0.93 10/02/18 15:42 APTT 23.1 Seconds (25.1-36.5) L 10/02/18 15:42 Attending/Attestation - Attestation I have personally seen and examined this patient.: Yes I have fully participated in the care of the patient.: Yes I have reviewed all pertinent clinical information, including history, physical exam and plan: Yes Notes (Text): Patient seen and examined by me with resident at 9:25AM on 10/03/18. Case including HPI, physical exam, and assessment and plan discussed with resident. Agree with above with following additions/corrections. Patient is a 33-year-old female past medical history significant for lupus on Plaquenil therapy, depression, and panic attacks that presented to the emergency room with chest pain and worsening shortness of breath. Patient states that she is feeling better. Still with a little chest pain with deep breaths. Discussed lymphadenopathy with patient at length. Patient understands she will need follow up for this as an outpatient. Patient also understands that she should abstain from alcohol use. She states she feels less "shaky" today. Patient denies any shortness of breath. No headaches or dizziness. No lightheadedness. No change in vision. No dysuria. No fevers or chills. No diarrhea or constipation. Physical exam: General: Awake and alert, lying in bed in no acute distress. HEENT: Normocephalic, atraumatic, Extraocular muscles intact, pupils equal and reactive, no scleral icterus. Oropharynx is pink and moist. No pharyngeal erythema or exudate appreciated. Neck is supple. Cardiovascular: Normal rhythm. Normal S1 and S2. No murmus, rubs, or gallops appreciated. Pulmonary: Normal respiratory effort. No rhonchi, rales, or wheezing appreciated. Gastrointestinal: Soft. Mild distention. Mild tenderness at wound side. Positive bowel sounds all 4 quadrants. No guarding.Dressing clean, dry, and intact. Musculoskeletal: Moves all extremities. No calf tenderness. Dressing left lower extremity clean, dry and intact. Central nervous system: AAO x3, CN2-12 grossly intact. Dermatologic: Skin warm and dry. Assessment and plan: Patient is a 33-year-old female past medical history significant for lupus on Plaquenil therapy, depression, and panic attacks that presented to the emergency room with chest pain and worsening shortness of breath. 1. Chest pain. ACS ruled out. Cardiology following, recommendations appreciated. Troponins within normal limits. CTA chest per radiologist showed no evidence of aortic dissection, no gross central pulmonary embolism, nonspecific prominent mediastinal and bilateral axillary lymph nodes, largest node measures 2.7 x 1.6 cm and left axilla. 2D echo pending. 2. Alcohol withdrawal. Continue CIWA. Taper off Librium. Patient counseled at length on alcohol cessation. Continue MVI, folic acid, and thiamine. 3. Bilateral mediastinal and axillary lymphadenopathy. Seen on CTA chest. May be secondary to lupus. Patient will need outpatient follow up for further testing and recommendations. This was discussed at length with patient. Patient understands and agrees. 4. Lupus. Continue Plaquenil. Case was discussed in detail with patient regarding current diagnosis and treatment plan. All questions answered.
--- NOTE | 2018-10-04 01:33 | CON ---
DATE OF CONSULTATION: 10/03/2018 REQUESTING PHYSICIAN: Dr. William REASON FOR CONSULTATION: Chest pain. HISTORY: This is a 33-year-old woman with a reported history of systemic lupus erythematosus, maintained on Plaquenil therapy, who is sent to the emergency room complaining of chest pain and dyspnea. She states that she has had a prior history of depression and panic attacks as well. She states she has had multiple episodes of pericarditis in the past and has taken intermittent nonsteroidal anti-inflammatories for this. For the past month or so, she has been drinking more heavily with both wine and vodka. She has been unemployed for the past month or so and has got to start a new job in several weeks. She became concerned regarding her chest pain and presented to the emergency room. She describes it as a heaviness in the center of her chest, worse with deep inspiration. PAST HISTORY: Notable for the problems mentioned above. She has also undergone surgery for carpal tunnel release involving her right arm. FAMILY HISTORY: Several members have hypertension and diabetes. No premature heart disease. SOCIAL HISTORY: As noted above. She denies tobacco abuse. 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 MEDICATIONS AT HOME: Plaquenil 200 mg b.i.d. ALLERGIES: NONE. REVIEW OF SYSTEMS: A 10-point review of systems is notable mainly for the problems mentioned above. She states she exercises regularly with no significant limitations. PHYSICAL EXAMINATION GENERAL: She is a fairly healthy-appearing young woman. VITAL SIGNS: Her blood pressure is 100/70 with a pulse of 90. Respirations are 16. She is afebrile. HEENT: Normocephalic, atraumatic. NECK: Supple. No JVD noted. CHEST: Clear to auscultation and percussion. HEART: PMI normal position. No pathological murmurs or gallops noted. No rub is heard. ABDOMEN: Soft and nontender with normoactive bowel sounds. EXTREMITIES: No clubbing, cyanosis, or edema. SKIN: Warm and dry. PSYCHIATRIC: Normal mood and affect. NEUROLOGICAL: Alert and oriented x3. No gross motor or sensory deficits noted. DIAGNOSTIC DATA: Electrocardiogram reveals sinus tachycardia, but otherwise no significant abnormalities. Chest x-ray reveals normal cardiac silhouette with clear lung rowe. Labs include potassium 3.7, BUN and creatinine 10 and 0.6. White count 4.0, hemoglobin and hematocrit are 12 and 36.7 with a platelet count of 257,000. Cardiac enzymes are negative x2. Thyroid panel is normal. Toxicology screen is negative. Alcohol level is negative as well. IMPRESSION: Chest pain, maybe consistent with lupus pericarditis at this time. Doubt ischemic heart disease given her absence of risk factors and young age. No clear evidence of significant pericardial effusion on physical examination. Rest of problems as noted. RECOMMENDATIONS: Anti-inflammatory agents can be utilized. An echocardiogram will be performed and reviewed. The need for alcohol abstinence was discussed with her. Outpatient followup will be arranged as needed. Thank you for this consultation and I would be happy to follow along as needed. Humberto Abrams MD
[2018-10-04 06:00] VITALS: O2SAT 94
[2018-10-04 07:21] LABS: BASO # 0.01 K/mm3 (0.0-2.0); BASO % 0.3 % (0.0-3.0); EOS # 0.1 (0.0-0.7); EOS % 1.7 % (1.5-5.0); GRAN # 1.71 (1.4-6.5); GRAN % 47.4 % (50.0-68.0); HEMOGLOBIN 12.7 g/dL (12.0-16.0); LYMPH # 1.4 (1.2-3.4); LYMPH % 37.5 % (22.0-35.0); MEAN CELL VOLUME 89.5 fl (80.0-105.0); MEAN CORPUSCULAR HEMOGLOBIN 29.1 pg (25.0-35.0); MEAN CORPUSCULAR HGB CONC 32.5 g/dl (31.0-37.0); MEAN PLATELET VOLUME 10.1 fl (7.0-11.0); MONO # 0.5 (0.1-0.6); MONO % 13.1 % (1.0-6.0); RBC 4.37 10^6/uL (3.5-6.1); RED CELL DISTRIBUTION WIDTH 12.2 % (11.5-14.5); WHITE BLOOD COUNT 3.6 10^3/uL (4.5-11.0)
[2018-10-04] MEDS ORDERED: Pantoprazole 40 mg EC Tab PO SCH (07:30)
[2018-10-04 07:47] LABS: ALB/GLOB RATIO 1.2 (1.1-1.8); ALBUMIN 3.8 g/dL (3.0-4.8); ALT/SGPT 35 U/L (7-56); AST/SGOT 49 U/L (14-36); BLOOD UREA NITROGEN 7 mg/dL (7-21); CALCIUM 8.8 mg/dL (8.4-10.5); GFR NON-AFRICAN AMERICAN > 60
--- NOTE | 2018-10-04 09:26 | CARD ---
APPROVED REPORT Date of service: 10/04/2018 EXAM: Two-dimensional and M-mode echocardiogram with Doppler and color Doppler. INDICATION Chest Pain 2D DIMENSIONS Left Atrium (2D)3.1 (1.6-4.0cm)IVSd0.8 (0.7-1.1cm) LVDd4.0 (3.9-5.9cm)PWd0.8 (0.7-1.1cm) LVDs2.8 (2.5-4.0cm)FS (%) 29.4 % LVEF (%)57.0 (>50%) M-Mode DIMENSIONS Aortic Root2.50 (2.2-3.7cm)Aortic Cusp Exc.1.70 (1.5-2.0cm) Aortic Valve AoV Peak Pyvmvzup588.0cm/Emily Peak GR.6mmHg Mitral Valve MV E Cdlcmrlz75.6cm/sMV A Ynwnuxtg12.5cm/sE/A ratio1.1 TDI E/Lateral E'0.0E/Medial E'0.0 Tricuspid Valve TR Peak [id number]/sRAP [id number] Peak Gr.9mmHg [id number] LEFT VENTRICLE The left ventricle is normal size. There is normal left ventricular wall thickness. The left ventricular function is normal. The left ventricular ejection fraction is within the normal range. There is normal LV segmental wall motion. RIGHT VENTRICLE The right ventricle is normal size. The right ventricular systolic function is normal. ATRIA The left atrium size is normal. The right atrium size is normal. The interatrial septum is intact with no evidence for an atrial septal defect. AORTIC VALVE The aortic valve is normal in structure. No aortic regurgitation is present. There is no aortic valvular stenosis. MITRAL VALVE The mitral valve is normal in structure. Mitral regurgitation is trace. TRICUSPID VALVE The tricuspid valve is normal in structure. There is trace tricuspid regurgitation. PULMONIC VALVE The pulmonary valve is normal in structure. GREAT VESSELS The aortic root is normal in size. The IVC is normal in size and collapses >50% with inspiration. PERICARDIAL EFFUSION There is no pleural effusion. There is no pericardial effusion. <Conclusion> Normal study.
[2018-10-04] MEDS ORDERED: Naproxen 550 mg Tab PO SCH (10:00)
--- NOTE | 2018-10-04 12:07 | PN ---
DATE: 10/04/2018 SUBJECTIVE: The patient is seen lying in bed on telemetry. She states she continues to have some chest heaviness, this is worse with deep inspiration. Her echocardiogram was performed earlier today and was basically normal. CURRENT MEDICATIONS: Include Ativan, Librium, Plaquenil, and Protonix. OBJECTIVE : GENERAL: She is a young woman who appears somewhat anxious. VITAL SIGNS: Blood pressure is 92/60 with pulse of 84, respirations 16. She is afebrile. HEENT: No JVD. CHEST: Clear to auscultation and percussion. HEART: No pathological murmurs or gallops heard. No rub is noted. ABDOMEN: Soft, nontender, normoactive bowel sounds. EXTREMITIES: No edema. DIAGNOSTICS DATA: Potassium 3.6, BUN and creatinine 7 and 0.6. White count 3.6, hemoglobin and hematocrit of 12.7 and 39.1 with platelet count of 244,000. IMPRESSION: 1. Chest pain, likely pleuritic or pericardial in nature, likely related to underlying lupus. 2. History of systemic lupus erythematosus, on Plaquenil. 3. History of alcohol abuse. RECOMMENDATIONS: From cardiac standpoint, she appears stable for discharge home at this time. Nonsteroidal inflammatory agents can be utilized at this time for her pain. 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 Alcohol abstinence was strongly encouraged. I will be happy to see her in the future as needed. Humberto Abrams MD
--- NOTE | 2018-10-04 12:54 | CP.PCM.DIS ---
Provider - Provider Date of Admission: 10/02/18 18:02 Attending physician: Alejandrina William DO Consults: 10/02/18 20:08 Cardiology Consult Routine Comment: Consulting Provider: Michelet Wu Consulting Physician: Michelet Wu Reason for Consult: chest pain, palpitations, hx lupus and pericarditis Time Spent in preparation of Discharge (in minutes): 45 Diagnosis - Discharge Diagnosis (1) Alcohol withdrawal Status: Resolved (2) Alcohol consumption binge drinking Status: Acute (3) Chest pain Status: Resolved (4) Lymphadenopathy Status: Acute Hospital Course - Lab Results Lab Results: Most Recent Lab Values WBC 3.6 10^3/uL (4.5-11.0) L 10/04/18 06:45 RBC 4.37 10^6/uL (3.5-6.1) 10/04/18 06:45 Hgb 12.7 g/dL (12.0-16.0) 10/04/18 06:45 Hct 39.1 % (36.0-48.0) 10/04/18 06:45 MCV 89.5 fl (80.0-105.0) 10/04/18 06:45 MCH 29.1 pg (25.0-35.0) 10/04/18 06:45 MCHC 32.5 g/dl (31.0-37.0) 10/04/18 06:45 RDW 12.2 % (11.5-14.5) 10/04/18 06:45 Plt Count 244 10^3/uL (120.0-450.0) 10/04/18 06:45 MPV 10.1 fl (7.0-11.0) 10/04/18 06:45 Gran % 47.4 % (50.0-68.0) L 10/04/18 06:45 Lymph % (Auto) 37.5 % (22.0-35.0) H 10/04/18 06:45 [place] % (Auto) 13.1 % (1.0-6.0) H 10/04/18 06:45 Eos % (Auto) 1.7 % (1.5-5.0) 10/04/18 06:45 Baso % (Auto) 0.3 % (0.0-3.0) 10/04/18 06:45 Gran # 1.71 (1.4-6.5) 10/04/18 06:45 Lymph # (Auto) 1.4 (1.2-3.4) 10/04/18 06:45 [place] # (Auto) 0.5 (0.1-0.6) 10/04/18 06:45 Eos # (Auto) 0.1 (0.0-0.7) 10/04/18 06:45 Baso # (Auto) 0.01 K/mm3 (0.0-2.0) 10/04/18 06:45 ESR 4 mm/hr (0.0-20.0) 10/02/18 15:42 PT 10.6 SECONDS (9.4-12.5) 10/02/18 15:42 INR 0.93 10/02/18 15:42 APTT 23.1 Seconds (25.1-36.5) L 10/02/18 15:42 D-Dimer, Quantitative < 200 ng/mlDDU (0-243) 10/02/18 15:42 Sodium 137 mmol/L (132-148) 10/04/18 06:45 Potassium 3.6 mmol/L (3.6-5.0) 10/04/18 06:45 Chloride 104 mmol/L (98-107) 10/04/18 06:45 Carbon Dioxide 28 mmol/L (21-33) 10/04/18 06:45 Anion Gap 8 (10-20) L 10/04/18 06:45 BUN 7 mg/dL (7-21) 10/04/18 06:45 Creatinine 0.6 mg/dl (0.7-1.2) L 10/04/18 06:45 Est GFR ( Amer) > 60 10/04/18 06:45 Est GFR (Non-Af Amer) > 60 10/04/18 06:45 Random Glucose 88 mg/dL (70-110) 10/04/18 06:45 Hemoglobin A1c 4.5 % (4.2-6.5) 10/03/18 03:02 Calcium 8.8 mg/dL (8.4-10.5) 10/04/18 06:45 Phosphorus 4.0 mg/dL (2.5-4.5) 10/03/18 03:02 Magnesium 2.5 mg/dL (1.7-2.2) H 10/03/18 03:02 Total Bilirubin 0.5 mg/dL (0.2-1.3) 10/04/18 06:45 AST 49 U/L (14-36) H 10/04/18 06:45 ALT 35 U/L (7-56) 10/04/18 06:45 Alkaline Phosphatase 59 U/L (38-126) 10/04/18 06:45 Total Creatine Kinase 399 U/L (35-230) H 10/02/18 15:42 CK-MB (CK-2) 0.8 ng/mL (0.0-3.6) 10/02/18 15:42 CK-MB (CK-2) % Cancelled 10/02/18 15:42 Troponin I < 0.01 ng/mL 10/03/18 03:02 Total Protein 6.9 g/dL (5.8-8.3) 10/04/18 06:45 Albumin 3.8 g/dL (3.0-4.8) 10/04/18 06:45 Globulin 3.2 gm/dL 10/04/18 06:45 Albumin/Globulin Ratio 1.2 (1.1-1.8) 10/04/18 06:45 Lipase 98 U/L (23-300) 10/02/18 15:42 Free T4 1.21 ng/dL (0.78-2.19) 10/03/18 03:02 Total T3 1.35 ng/mL (0.97-1.69) 10/03/18 03:02 TSH 3rd Generation 1.28 mIU/mL (0.46-4.68) 10/02/18 15:42 Urine Opiates Screen Negative (NEGATIVE) 10/02/18 15:42 Urine Methadone Screen Negative (NEGATIVE) 10/02/18 15:42 Ur Barbiturates Screen Negative (NEGATIVE) 10/02/18 15:42 Ur Phencyclidine Scrn Negative (NEGATIVE) 10/02/18 15:42 Ur Amphetamines Screen Negative (NEGATIVE) 10/02/18 15:42 U Benzodiazepines Scrn Negative (NEGATIVE) 10/02/18 15:42 U Oth Cocaine Metabols Negative (NEGATIVE) 10/02/18 15:42 U Cannabinoids Screen Negative (NEGATIVE) 10/02/18 15:42 Alcohol, Quantitative < 10 mg/dL (0-10) 10/02/18 20:20 - Hospital Course Hospital Course: HPI at time of admission: "33 y o female with PMhx lupus (currently on plaquenil therapy), depression, panic attacks, who presents to the ED c/o chest pain and worsening shortness of breath since this am. States she awoke this am from sleep, felt palpitations, thought she was having a panic attack, but that her symptoms did not go away on own and have been constant and unrelenting since onset. States she took one 800 mg tablet of ibuprofen for pain which did not help. Pt states she was previously treated for Pericarditis in 2017 and admitted at [facility]. Also admits to binge drinking for the past 1.5 mos, admits to drinking about 4-5 glasses red wine/day mixed in between with [employer] Vodka. 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 Admits to associated diaphoresis and tremors. Admits to headache and nausea. Denies vision changes, fever, chills, v/d/c, abd pain, urinary complaints or other symptoms." Hospital Course: Pertinent imaging: EKG sinus tachycardia in ED, no acute St-T wave changes appreciated CTA neg for PE; b/l axillary and mediastinal lymphadenopathy noted CXR neg for acute disease Echo 10/04: normal study. Pt was admitted for chest pain r/o ACS, EtOH withdrawal. Cardio was consulted (Dr. 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 Trops neg x3. Thyroid studies wnl. Pt also had b/l mediastinal and axillary lymphadenopathy noted on CTA. Was instructed to f/u outpatient with pulmonology for further work-up. Did not have B-symptoms, inc night sweats and unintentional weight loss on presentation. Pt was placed on CIWA protocol, given Ativan and Librium for withdrawal symptoms. Pt was continued on home med Plaquenil for hx Lupus while inpatient. Chest pain resolved and withdrawal symptoms improved. Pt was discharged to home in stable condition on 10/04/17. Given appt to f/u at [facility] for appt on 10/11/18 at 3:30 pm to establish care and get referrals for specialists. Instructed to resume home meds and abstain from EtOH use. Given prescription for Naproxen bid x3 days. Instructed to return to the ED if her symptoms return. Discharge Exam - Head Exam Head Exam: ATRAUMATIC, NORMOCEPHALIC - Eye Exam Eye Exam: EOMI, Normal appearance, PERRL - ENT Exam ENT Exam: Mucous Membranes Moist - Respiratory Exam Respiratory Exam: Clear to PA & Lateral, NORMAL BREATHING PATTERN, UNREMARKABLE. absent: Rales, Rhonchi, Wheezes - GI/Abdominal Exam GI & Abdominal Exam: Normal Bowel Sounds, Soft, Unremarkable. absent: Distended, Organomegaly - Extremities Exam Extremities exam: full ROM, normal capillary refill, normal inspection, pedal pulses present - Neurological Exam Neurological exam: Alert, CN II-XII Intact, Normal Gait, Oriented x3, Reflexes Normal - Skin Skin Exam: Dry, Intact, Normal Color, Warm Discharge Plan - Discharge Medications Prescriptions: Naproxen [Anaprox DS] 550 mg PO BID #6 tab - Follow Up Plan Condition: STABLE Disposition: HOME/ ROUTINE Instructions: Chest Pain (DC), Alcohol Withdrawal (DC) Additional Instructions: Please follow up with the [facility] on THURSDAY OCTOBER 11, 2018 At 3:30pm. You have bilateral enlarged axillary lymph nodes. You will need to follow up with Hematology and Rheumatology within 1 week of discharge for further evaluation. Please follow up with your data analytics developer within 1 week. Continue Plaquenil 200mg TWICE per day (home medication) You have been given a prescription for: - Naproxen 550mg twice per day for 3 days. Take with food. DO NOT TAKE THIS WITH OTHER NSAIDS, nonsteriodal antinflammatory drugs (such as Aleve, Motrin etc) - if pain does not resolve after completing this medication, you can take ibuprofen over the counter as needed. Please refrain from alcohol use. If your symptoms return, please go to the nearest emergency department. Referrals: [facility] [place] Eldon Sterling MD [Staff Provider] - Yared Gagnon MD [Medical Doctor] -
[2018-10-04 13:00] VITALS: PULSE 89
[2018-10-04 13:21] VITALS: BP 104/70; TEMP 98.1
== END 2018-10-04 12:39 | disposition home or self-care (01) ==
LOC: ED 14:54 → ERH 18:02 → 2RNO 20:55
PROVIDERS: ADMIT Hospitalist; ATTEND Hospitalist
DX: F10.239 Alcohol dependence with withdrawal, unspecified (principal); M32.9 Systemic lupus erythematosus, unspecified; R07.9 Chest pain, unspecified; R59.0 Localized enlarged lymph nodes; F32.9 Major depressive disorder, single episode, unspecified
CPT/HCPCS: 36415; 71045; 71275; 74175; 80053; 80320; 80324; 80345; 80346; 80349; 80353; 80358; 80361; 82550; 82553; 83036; 83690; 83735; 83992; 84100; 84439; 84443; 84480; 84484; 85025; 85378; 85610; 85651; 85730; 93005; 93306; 96365; 96375; 96376; 99285; C9113; G0378; J1885; J2060; J2270; Q9967